=== PATIENT | female | born 1960 | race Two or more races ===

== ENCOUNTER 2020-10-18 19:38 | Emergency (ER) | payer MEDICAID ==
[~2020-10-18] VITALS: Ht 162.6 cm; Wt 59.0 kg
--- NOTE | 2020-10-18 20:13 | NUR ---
ERMD into eval patient.
--- NOTE | 2020-10-18 20:30 | NUR ---
Pt out of ER for CT.
--- NOTE | 2020-10-18 20:47 | NUR ---
Pt back to ER from CT.
[2020-10-18] MEDS ORDERED: NAPR-1009 PO (21:30)
--- NOTE | 2020-10-18 21:33 | NUR ---
Patient discharged to home in stable condition. Written and verbal after care instructions given. Patient verbalizes understanding of instructions. Stressed follow up or return to ER for worsening s/s. Patient out of ER with steady gait, no acute signs of distress, VSS, all belongings taken, provided with copies of xray and ct results, as well as a CD of images.
[2020-10-18 21:34] VITALS: BP 103/77
== END 2020-10-18 21:35 | disposition home or self-care (01) ==
LOC: ER 19:38
DX: S83.91XA Sprain of unspecified site of right knee, initial encounter (principal); W01.0XXA Fall on same level from slipping, tripping and stumbling without subsequent striking against object, initial encounter; Y92.89 Other specified places as the place of occurrence of the external cause; M79.674 Pain in right toe(s); M48.02 Spinal stenosis, cervical region
CPT/HCPCS: 70450; 72125; 73660; A4663

== ENCOUNTER 2020-11-10 12:22 | Emergency (ER) | payer MEDICAID ==
[~2020-11-10] VITALS: Ht 162.6 cm; Wt 56.7 kg
[~2020-11-10 12:22] MED LIST: NAPR-1009 PO
[2020-11-10] MEDS ORDERED: AZIT250T13 PO (12:56)
--- NOTE | 2020-11-10 13:09 | NUR ---
Patient discharged to home in stable condition. Written and verbal after care instructions given. Patient verbalizes understanding of instructions. Stressed follow up or return to ER for worsening s/s.
== END 2020-11-10 13:10 | disposition home or self-care (01) ==
LOC: ER 12:22
DX: J06.9 Acute upper respiratory infection, unspecified (principal); Z20.822 Contact with and (suspected) exposure to COVID-19
CPT/HCPCS: 99283; U0003; A4663

== ENCOUNTER 2024-06-02 21:19 | Emergency (ER) | payer OTHER, MEDICAID ==
[~2024-06-02] VITALS: Ht 162.6 cm; Wt 58.1 kg
[~2024-06-02 21:19] MED LIST changes: +AZIT250T13 PO
[2024-06-03] MEDS ORDERED: diphenhydrAMINE 50 MG/1 ML VIAL ONE (01:25)
[2024-06-03] MEDS ORDERED: HYDROMORPHONE 1 MG/1 ML DISP.SYRIN ONE (01:25)
[2024-06-03] MEDS: diphenhydrAMINE 50 MG/1 ML VIAL IM ONE (01:35)
[2024-06-03] MEDS: HYDROMORPHONE 1 MG/1 ML DISP.SYRIN IM ONE (01:35)
[2024-06-03] MEDS ORDERED: HYDR-3980 PO (02:01)
[2024-06-03 02:06] VITALS: BP 120/46; TEMP 97.8; O2SAT 98
== END 2024-06-03 02:06 | disposition home or self-care (01) ==
LOC: ER 21:51
DX: S20.212A Contusion of left front wall of thorax, initial encounter (principal); S37.012A Minor contusion of left kidney, initial encounter; S70.02XA Contusion of left hip, initial encounter; F07.81 Postconcussional syndrome; E78.5 Hyperlipidemia, unspecified; W06.XXXA Fall from bed, initial encounter; Y93.9 Activity, unspecified; Y92.9 Unspecified place or not applicable; Y99.9 Unspecified external cause status
CPT/HCPCS: 99285; 70450; 71250; 72125; 74176; 96372 ×2; J1171; J1200; A4606; A4663